=== PATIENT | male | born 1990 | race Caucasian/White ===

== ENCOUNTER → 2017-06-09 | Outpatient (CLI) | payer OTHER ==
[~2017-06-09] MED LIST: ALBU8.5H IH; AMOX-559 PO; CODE118S5 PO; HYDR1KIT TOP; HYDR474S3 PO; METH4TAB66 PO; PANT40TA65 PO; POLY15DR5 OP; PRED2.5T6 PO; [UNRECOGNIZED DRUG - CODE] MM
--- NOTE | 2017-06-09 14:05 | RADIOLOGY IMAGING REPORT ---
[place] [facility] [place] Tima Nguyen : 1990 MR: [id number] V: [id number] EXAM DATE: ORDERING PHYSICIAN: GRANT KANG TECHNOLOGIST: Location: [facility] [place] Patient: Tima Nguyen : 1990 Visit/Account:[id number] Date of Sevice: 06/09/2017 Exam type: FOOT 3 VIEW LEFT History: B injury two weeks ago, fifth metatarsal pain Comparison: None. Findings: There is no evidence of acute fracture-dislocation or arthritic change involving the left foot. No r adiopaque soft tissue foreign body seen. IMPRESSION: No acute osteoarticular abnormality of the left foot is seen. If patient's symptoms persist follow u p imaging recommended to exclude an occult injury Report Dictated By: Stephanie Rosa MD at 06/09/2017 2:00 PM Report E-Signed By: Stephanie Rosa MD at 06/09/2017 2:02 PM WSN:[email or web address]
== END ==
LOC: RAD 11:59
PROVIDERS: ATTEND Emergency Medicine Sports Medicine
DX: M25.572 Pain in left ankle and joints of left foot (principal)